=== PATIENT | male | born 1955 | race Caucasian/White ===

== ENCOUNTER 2022-09-26 09:23 | Emergency (ER) | payer MEDICARE, OTHER ==
[~2022-09-26] VITALS: Ht 175.3 cm; Wt 56.7 kg
[~2022-09-26 09:23] MED LIST: AZIT250 PO; Bactrim Ds Tab1 EACH PO; CODGUAEL PO
[2022-09-26] MEDS ORDERED: Bactrim Ds Tab1 EACH PO (10:34)
== END 2022-09-26 10:43 | disposition home or self-care (01) ==
LOC: ER 09:23
DX: L02.611 Cutaneous abscess of right foot (principal); F17.210 Nicotine dependence, cigarettes, uncomplicated
CPT/HCPCS: 10060; 87070; 87075; 87076; 87205; 99283-25